=== PATIENT | female | born 1975 | race Caucasian/White ===

== ENCOUNTER 2019-02-06 07:12 | Day surgery (SDC) | payer OTHER ==
[~2019-02-06] VITALS: Ht 167.6 cm; Wt 105.4 kg
[~2019-02-06 07:12] MED LIST: 0.9% SODIUM CHLORIDE 10 ML SYRINGE IVP PRN; METOPROLOL TARTRATE 50 MG TABLET PO PRN; SIMV-260 PO
[2019-02-06 08:01] LABS: ANION GAP 9 mmol/L (8-16); CALCIUM, TOTAL 8.6 mg/dL (8.8-10.5); CARBON DIOXIDE 27 mmol/L (22-29); CHLORIDE 105 mmol/L (98-107); CREATININE 0.69 mg/dL (0.60-1.30); GLOMERULAR FILTR. RATE CALC > 60 mL/min (>60); GLUCOSE,RANDOM 107 mg/dL (70-110); POTASSIUM 3.9 mmol/L (3.5-5.1); SODIUM SERUM 141 mmol/L (136-145); UREA NITROGEN, BLOOD 14 mg/dL (7-18)
[2019-02-06] MEDS ORDERED: RANI150T7 PO (08:13)
[2019-02-06] MEDS ORDERED: NITROGLYCERIN 400 MCG/SUBLINGUAL SPRAY 4.9 GM BOTTLE SL ONE (08:25)
[2019-02-06] MEDS ORDERED: METOPROLOL TARTRATE 50 MG TABLET ONE (08:46)
[2019-02-06] MEDS ORDERED: IOVERSOL 350 MG/ML 150 ML VIAL ONE (10:35)
[2019-02-06] MEDS ORDERED: SODIUM CHLORIDE 0.9% 100 ML ONE (10:35)
[2019-02-06] MEDS ORDERED: METOPROLOL TARTRATE 5 MG/5 ML VIAL ONE ×2 (10:42→11:16)
== END 2019-02-06 12:40 | disposition home or self-care (01) ==
LOC: SURGERY 07:12 → EDSTATUS 09:00 → SURGERY 12:40
PROVIDERS: ATTEND Internal Medicine Cardiovascular Disease
DX: I25.10 Atherosclerotic heart disease of native coronary artery without angina pectoris (principal); R07.9 Chest pain, unspecified; I10 Essential (primary) hypertension; I34.1 Nonrheumatic mitral (valve) prolapse; K21.9 Gastro-esophageal reflux disease without esophagitis; Z79.899 Other long term (current) drug therapy; Z90.49 Acquired absence of other specified parts of digestive tract; Z98.890 Other specified postprocedural states
CPT/HCPCS: 36415; 75574; 80048; 84703; J3490; J7050; Q9967